=== PATIENT | male | born 1940 | race Caucasian/White ===

== ENCOUNTER → 2023-03-27 12:00 | Outpatient (CLI) | payer MEDICARE, OTHER, SELFPAY ==
--- NOTE | 2023-03-27 12:04 | DI.RAD.S_ITS ---
PROCEDURE: XR HAND RT MIN 3V INDICATIONS: RIGHT HAND PAIN TECHNIQUE: 3 views of the hand(s) acquired. COMPARISON: None. FINDINGS: Bones: No fractures or dislocations. Carpal bones are normally aligned. 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 No suspicious bony lesions. Soft tissues: No suspicious soft tissue calcifications. 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 No fracture or dislocation. Dictated by: Geoffrey Eli M.D. on 03/27/2023 at 13:51 Approved by: Geoffrey Eli M.D. on 03/27/2023 at 13:51
--- NOTE | 2023-03-27 12:04 | DI.RAD.S_ITS ---
PROCEDURE: XR FOOT RT MIN 3V INDICATIONS: RIGHT FOOT PAIN TECHNIQUE: 3 views of the foot were acquired. COMPARISON: None. FINDINGS: Bones: No fractures or dislocations. Osteoarthritic changes are noted throughout right foot more notably at 1st MTP joint and throughout interphalangeal joints. No suspicious bony lesions. Soft tissues: No tibiotalar joint effusion. Achilles tendon appears normal. IMPRESSION: Right foot osteoarthritis. No acute fracture or dislocation. No gross soft tissue abnormalities. Dictated by: Geoffrey Eli M.D. on 03/27/2023 at 13:50 Approved by: Geoffrey Eli M.D. on 03/27/2023 at 13:51
== END ==
PROVIDERS: PCP Physician Assistant; Referring Provider Anesthesiology; Visit Provider Anesthesiology
DX: M19.071 Primary osteoarthritis, right ankle and foot (principal); M19.041 Primary osteoarthritis, right hand; M19.031 Primary osteoarthritis, right wrist; M79.641 Pain in right hand; M79.671 Pain in right foot
CPT/HCPCS: 73130; 73630; 99214

== ENCOUNTER → 2023-05-24 10:44 | Outpatient (CLI) | payer MEDICARE, OTHER, SELFPAY ==
--- NOTE | 2023-05-24 10:45 | DI.RAD.S_ITS ---
PROCEDURE: XR LUMBAR SPINE MIN 4V INDICATIONS: FOOT PAIN TECHNIQUE: 5 views of the lumbar spine were acquired, including bilateral oblique views. COMPARISON: None. FINDINGS: Bones: 5 nonrib-bearing vertebrae are present. Grade 1 anterolisthesis L5 on S1. Grade 1 retrolisthesis of L4 on L5. Moderate disc height loss at all levels. Facet arthrosis L3 through S1. Soft tissues: Overlying bowel gas pattern is normal. Infrarenal aortic aneurysm measuring 3.6 cm. Oblique images: Bilateral L5 pars defects. IMPRESSION: Grade 1 anterolisthesis of L5 on S1 secondary to pars defects. 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 Suspect infrarenal aortic aneurysm measuring 3.6 cm. Confirm with ultrasound. Dictated by: New Josue M.D. on 05/24/2023 at 11:38 Approved by: New Josue M.D. on 05/24/2023 at 11:40
== END ==
PROVIDERS: PCP Physician Assistant; Referring Provider Physical Medicine & Rehabilitation; Visit Provider Physical Medicine & Rehabilitation
DX: M51.36 Other intervertebral disc degeneration, lumbar region (principal); M47.816 Spondylosis without myelopathy or radiculopathy, lumbar region; M47.817 Spondylosis without myelopathy or radiculopathy, lumbosacral region; M43.17 Spondylolisthesis, lumbosacral region; M43.16 Spondylolisthesis, lumbar region; M19.071 Primary osteoarthritis, right ankle and foot; M79.671 Pain in right foot
CPT/HCPCS: 72110; 99214

== ENCOUNTER → 2023-09-21 12:59 | Outpatient (CLI) | payer MEDICARE, OTHER, SELFPAY | PROVIDERS: PCP Physician Assistant; Visit Provider Specialist | DX: N40.1 Benign prostatic hyperplasia with lower urinary tract symptoms (principal); N13.8 Other obstructive and reflux uropathy; N35.916 Unspecified urethral stricture, male, overlapping sites; Z85.51 Personal history of malignant neoplasm of bladder; Z87.442 Personal history of urinary calculi | CPT/HCPCS: 52000; 81002; 87086; 99214 ==